=== PATIENT | female | born 2000 | race Caucasian/White ===

== ENCOUNTER 2019-01-27 23:04 | Emergency (ER) | payer SELFPAY ==
[~2019-01-27] VITALS: Ht 172.7 cm; Wt 56.4 kg
[2019-01-27 23:21] VITALS: Ht 172.7 cm; Wt 56.4 kg
[2019-01-28] MEDS ORDERED: ZPAK PO (00:42)
[2019-01-28] MEDS ORDERED: ALBUTEROL SULF8.5 GM INH (00:42)
[2019-01-28] MEDS ORDERED: MEDROL DOSE PACK4 MG PO (00:42)
[2019-01-28 00:53] VITALS: BP 121/82
--- NOTE | 2019-01-28 02:57 | NUR ---
DR WATT NOTIFIED AND REVIEWED PT's BEHAVIOR AND ASSESSMENT RESULTS, PT IS A LOW RISK PER DR WATT. DR WATT STATED TO GIVE RESOURCES TO PT AT TIME OF DISCHARGE. NO FURTHER ORDERS AT THIS TIME. RESOURCES REVIEWED WITH PT AND SHE VERBALIZED UNDERSTANDING.
== END 2019-01-28 00:53 | disposition home or self-care (01) ==
LOC: D.ER 23:04
DX: J40 Bronchitis, not specified as acute or chronic (principal)

== ENCOUNTER 2020-03-14 08:41 | Inpatient (IN) | payer MEDICAID ==
[~2020-03-14] VITALS: Ht 172.7 cm; Wt 73.9 kg
--- NOTE | 2020-03-14 03:30 | NUR ---
PT SITTING UP IN BED WITH S/O AT SIDE. DENIES ANY NEEDS OR COMPLAINTS
--- NOTE | 2020-03-14 06:00 | NUR ---
PT RESTING QUIETLY WITH EYES CLOSED, NO DISTRESS NOTED. S/O AT BEDSIDE.
[~2020-03-14 08:41] MED LIST: ALBUTEROL SULF8.5 GM INH; MEDROL DOSE PACK4 MG PO; ZPAK PO
[2020-03-14 09:29] LABS: BILIRUBIN NEGATIVE (NEGATIVE); KETONE NEGATIVE (NEGATIVE); NITRITE NEGATIVE (NEGATIVE); UROBILINOGEN NORMAL mg/dL (< 2)
[2020-03-14 09:31] LABS: BACTERIA FEW /HPF (NONE SEEN); EPITHELIAL CELLS OCC /hpf (0-5); WHITE CELLS - URINE 0-5 HPF (0-4)
[2020-03-14 09:45] LABS: UDS - AMPHET NEGATIVE QUAL (NEGATIVE); UDS - BARB NEGATIVE QUAL (NEGATIVE); UDS - BENZO NEGATIVE QUAL (NEGATIVE); UDS - COCAINE NEGATIVE QUAL (NEGATIVE); UDS - OPIATE NEGATIVE QUAL (NEGATIVE); UDS - PCP NEGATIVE QUAL (NEGATIVE); UDS - THC NEGATIVE QUAL (NEGATIVE)
[2020-03-14] MEDS ORDERED: PRENAVITE1 TAB PO (10:03)
[2020-03-14] MEDS ORDERED: ACETAMINOPHEN500 M1 PO (10:04)
[2020-03-14 10:05] VITALS: BP 127/83; Ht 172.7 cm; Wt 73.9 kg
[2020-03-14 10:08] LABS: HEMATOCRIT 39.3 % (36.0-48.0); HEMOGLOBIN 13.1 g/dL (12-16); MCH 31.9 pg (26.0-34.0); MCHC 33.3 g/dL (31.0-37.0); MCV 95.6 fL (80.0-100.0); MEAN PLATELET VOLUME 9.9 fL (7.4-10.4); RBC 4.11 10x6/uL (4.00-5.40); RDW 13.5 % (11.5-14.5); WBC 18.7 10x3/uL (4.8-10.8)
[2020-03-14 10:55] LABS: ALBUMIN 2.8 g/dL (3.4-5.0); ALKALINE PHOSPHATASE 176 U/L (30-120); ALT (SGPT) 21 U/L (10-68); BILIRUBIN - TOTAL 0.19 mg/dL (0.2-1.3); CALC OSMOLALITY 270 mosm/kg (275-300); CALCIUM 8.8 mg/dL (8.5-10.1); CARBON DIOXIDE 24.9 mmol/L (21.0-32.0); CHLORIDE - SERUM 106 mmol/L (98-107); CREATININE - SERUM 0.6 mg/dL (0.6-1.3); GLUCOSE 89 mg/dL (74-106); POTASSIUM - SERUM 4.1 mmol/L (3.5-5.1); PROTEIN - SERUM 6.4 g/dL (6.4-8.2); SODIUM 137 mmol/L (136-145); UREA NITROGEN 8 mg/dL (7-18); eGFR NON AFRICAN AMERICAN > 90 mL/min (90-120)
--- NOTE | 2020-03-14 19:35 | NUR ---
PT RESTING IN BED, DENIES C/O PAIN, DISCOMFORT OR ANY FURTHER NUMBNESS.EPIDURAL REMOVED WITH TIP INTACT. PT UP TO BR WITH ASSIST X2. SHE VOIDED GROSS LARGE UNMEASURED AMOUNT. ZAYNAB CARE DONE AND TAUGHT AND PT VOICED UNDERSTANDING. PT TO AND TRANSFERRED TO WOMEN'S SERVICES AND ROOM ORIENTATION DONE. SR UP X2, CALL LIGHT IN REACH
[2020-03-14 19:45] VITALS: BP 107/66
--- NOTE | 2020-03-14 20:05 | NUR ---
ASSESSMENT COMPLETE.LUNG SOUNDS CLEAR BILATERALLY, ABD SOFT FUNDUS FIRM MIDLINE AT UMBILICUS WITH SMALL AMT OF RUBRA LOCHIA RETURNED WITH MASSAGE. PERINEUM INTACT NO SWELLING NOTED. NO PEDAL EDEMA NOTED. NSL FLUSHED WITH 3 CC NS. CALL LIGHT IN REACH, SR UP X2, PHONE IN REACH.
--- NOTE | 2020-03-15 00:22 | NUR ---
PT RESTING QUIETLY WITH EYES CLOSED, NO DISTRESS NOTED.
[2020-03-15 04:51] LABS: HEMATOCRIT 37.8 % (36.0-48.0); HEMOGLOBIN 12.3 g/dL (12-16); MCH 31.3 pg (26.0-34.0); MCHC 32.5 g/dL (31.0-37.0); MCV 96.2 fL (80.0-100.0); MEAN PLATELET VOLUME 10.7 fL (7.4-10.4); RBC 3.93 10x6/uL (4.00-5.40); RDW 13.5 % (11.5-14.5); WBC 17.6 10x3/uL (4.8-10.8)
--- NOTE | 2020-03-15 06:45 | NUR ---
REPORT RECEIVED FROM Lenora CALVO RN.
[2020-03-15 07:16] LABS: RAPID PLASMA REAGIN Non Reactive (Non Reactive)
--- NOTE | 2020-03-15 08:30 | NUR ---
TO ROOM FOR ASSESSMENT. PT RESTING WITH EYES CLOSED; AWAKENS EASILY TO VOICE/NAME. SEE FLOWSHEET. PT STATES TYLENOL HAS WORKED WELL FOR PAIN. NO NEEDS OR CONCERNS VOICED AT THIS TIME. LINENS AND TOILETRIES GIVEN FOR SHOWER. MALE VISITOR AT BEDSIDE.
[2020-03-15 08:45] VITALS: BP 99/52
--- NOTE | 2020-03-15 11:35 | NUR ---
ROUNDS MADE. PT RESTING WITH EYES CLOSED IN BED. IN OPEN CRIB AT BEDSIDE. NO NEEDS OR QUESTIONS AT THIS TIME.
--- NOTE | 2020-03-15 13:30 | NUR ---
ROUNDS MADE. PT SITTING UP IN BED FEEDING BABY. REQUESTS PAIN MED. MED GIVEN. SNACKS,WATER AND JUICE ALSO GIVEN. NO OTHER NEEDS OR CONCERNS AT THIS TIME.
--- NOTE | 2020-03-15 15:02 | NUR ---
ROUNDS MADE. PT RESTING IN BED WITH EYES CLOSED.
--- NOTE | 2020-03-15 16:28 | NUR ---
ROUNDS MADE. PT SITTING UP IN BED TALKING ON PHONE. AT BEDSIDE IN OPEN CRIB. NO NEEDS VOICED AT THIS TIME.
--- NOTE | 2020-03-15 17:11 | MORECARE ---
CASE MANAGEMENT DISCHARGE SUMMARY PATIENT: CORA CAMACHO UNIT: [id number] ADM DATE: 03/14/20 AGE: 19 : 98 SEX: F ROOM/BED: D.1219 AUTHOR: SNEHA SOFIA PHYSICIAN: REFERRING PHYSICIAN: CAESAR VENTURA MD DATE OF SERVICE: 03/15/20 Discharge Plan Patient Name: CORA CAMACHO Facility: [facility]:[place] : 2000 Planned Disposition: Home Anticipated Discharge Date: 03/15/20 Discharge Date: Expected LOS: 1 Initial Reviewer: [email or web address] Initial Review Date: 03/14/2020 Generated: 03/15/20 6:10 pm Patient Name: CORA CAMACHO Page [id number] at 1711 All edits/amendments must be made on the electronic document DICTATION DATE: 03/15/201710 PRODUCTION HARDENER: JESSICA 03/15/201710 RPT#: [id number] DC DATE: STATUS: ADM IN [facility] [address] [place] [address] END OF REPORT
--- NOTE | 2020-03-15 17:20 | MORECARE ---
CASE MANAGEMENT DISCHARGE SUMMARY PATIENT: CORA CAMACHO UNIT: [id number] ADM DATE: 03/14/20 AGE: 19 : 98 SEX: F ROOM/BED: D.1219 AUTHOR: SNEHA SOFIA PHYSICIAN: REFERRING PHYSICIAN: CAESAR VENTURA MD DATE OF SERVICE: 03/15/20 Discharge Plan Patient Name: CORA CAMACHO [facility] [facility] 2000 Planned Disposition: Home Anticipated Discharge Date: 03/15/20 Discharge Date: Expected LOS: 1 Initial Reviewer: [email or web address] Initial Review Date: 03/14/2020 Generated: 03/15/20 6:20 pm Last DP export: 03/15/20 4:11 p Patient Name: CORA CAMACHO Page [id number] at 1720 All edits/amendments must be made on the electronic document DICTATION DATE: 03/15/201719 TRAVEL ATTENDANTS: JESSICA 03/15/201719 RPT#: [id number] DC DATE: STATUS: ADM IN [facility] [address] [place] [address] END OF REPORT
--- NOTE | 2020-03-15 19:00 | NUR ---
RECEIVED SHIFT REPORT FROM JOSEFINA DAVENPORT RN
--- NOTE | 2020-03-15 19:25 | NUR ---
PT GETTING READY TO SHOWER, INFORMED PT THAT I WILL BE BACK SHORTLY THEN TO DO ASSESSMENT, PT VERBALIZES UNDERSTANDING, DENIES NEEDS OR PAIN AT THIS TIME
--- NOTE | 2020-03-15 20:10 | NUR ---
DR VENTURA IN ROOM TALKING TO PT
--- NOTE | 2020-03-15 20:15 | NUR ---
DR VENTURA AT AERONAUTICAL ENGINEERING TEACHER, REPORTS THAT HE ORDERED LOVENOX FOR PT AND THAT HE WANTED HER TO START THE LOVENOX TONIGHT, ALSO, TALKED TO HIM ABOUT PT REPORTING THAT SHE HAD RHOGAM 2 DAYS BEFORE DELIVERY, AND THAT IT WAS VERIFIED PER JOSEFINA DAVENPORT, [facility] AND PHARMACY THAT IT WAS FINE TO ADM ANOTHER DOSE, DR VENTURA CONFERS AND REPORTS TO ADM IT BEFORE DISCHARGE TOMORROW, ALSO, HE REPORTS THAT HE IS GOING TO PUT IN FOR A CASE MANAGEMENT CONS TO MAKE SURE PT IS ABLE TO GET THE LOVENOX AT HOME WHEN DISCHARGED
[2020-03-15 20:30] VITALS: BP 118/80
--- NOTE | 2020-03-15 20:30 | NUR ---
ASSESSMENT PER FLOW SHEET, VS OBTAINED, PT REPORTS SALINE LOCK IS HURTING, SLIGHTLY RED, SALINE LOCK REMOVED, TIP INTACT, PRESSURE HELD, BANDAID APPLIED, FF, ML, U/2, LITE BLEEDING NOTED WITH NO CLOTS, PT REPORTS FLATUS, NO BM, AND VOIDING WITH NO DIFFICULTY, PT USING ZAYNAB CARE INST, POC DISCUSSED WITH PT REGARDING LOVENOX, CASE MANAGEMENT CONS DUE TO THE LOVENOX, AND DISCHARGE TOMORROW, PT VERBALIZES UNDERSTANDING, DENIES NEEDS OR PAIN AT THIS TIME, IN OPEN CRIB CART AND FOB AT BEDSIDE, TRASH REMOVED
--- NOTE | 2020-03-15 21:10 | NUR ---
PT INST ON AND VERBALIZES UNDERSTANDING OF ADM OF LOVENOX, ADM LOVENOX SUBQ IN RIGHT ABD, PT ODILON WELL, PT REQUESTED AND SERVED FRESH H20 AND BAG OF CHIPS, DENIES FURTHER NEEDS, INFANT IN OPEN CRIB CART AT BEDSIDE
--- NOTE | 2020-03-15 22:00 | NUR ---
PT AMB IN PHAN WITH IN OPEN CRIB CART, GAIT STEADY, FOB AT SIDE
--- NOTE | 2020-03-15 22:07 | NUR ---
PT BACK TO ROOM, DENIES NEEDS OR PAIN AT THIS TIME
--- NOTE | 2020-03-16 00:24 | NUR ---
PT AMB TO ASSESSMENT SERVICES MANAGER, REQUESTED AND PROVIDED BLANKETS AND INFANT SHIRT, PT GETTING READY TO CHANGE DIRTY DIAPER, PT INST TO USE CALL LIGHT FOR ANY ASSISTANCE, FOB AT BEDSIDE
--- NOTE | 2020-03-16 02:07 | NUR ---
PT RESTING WITH EYES CLOSED, RESP QUIET, NO DISTRESS NOTED, LEFT UNDISTURBED AT THIS TIME, IN OPEN CART CRIB AND FOB AT BEDSIDE
--- NOTE | 2020-03-16 04:00 | NUR ---
PT RESTING WITH EYES CLOSED, RESP QUIET, NO DISTRESS NOTED, LEFT UNDISTURBED AT THIS TIME, IN OPEN CRIB CART SLEEPING, AND FOB AT BEDSIDE
[2020-03-16 06:45] VITALS: BP 122/63
--- NOTE | 2020-03-16 06:45 | NUR ---
PT RESTING WITH EYES CLOSED, AROUSES TO SOFT VERBAL STIMULATION, VS OBTAINED, FF, ML, U/2, LITE BLEEDING NOTED WITH NO CLOTS, PT DENIES NEEDS OR PAIN AT THIS TIME, FOB BOTTLE FEEDING
--- NOTE | 2020-03-16 08:47 | NUR ---
RN TO PT BS. CARLOS GIVEN AND DOSE EXPLAINED. PT TEACHING PROVIDED ON LOVENOOX. INSTRUCTIONS GIVEN ON SELF ADMINISTRATION. PT GAVE DOSE TO LLQ OF ABDOMEN WITHOUT DIFFICULTY. QUESTIONS ANSWERED. PT VERBALIZED UNDERSTANDING.
--- NOTE | 2020-03-16 10:49 | NUR ---
RN TO PT BS FOR ROUNDS. PT RESTING IN BED IN RIGHT LATERAL POSITION. PT DENIES ANY NEEDS AT THIS TIME. BED IN LOW POSITION, SIDE RAILS UP TIMES 2, CALL LIGHT AND PHONE IN REACH. REMAINS AT PT BS FOR COUPLET CARE. WILL CONT TO MONITOR PT STATUS.
[2020-03-16] MEDS ORDERED: LOVENOX40 MG/0.4 SC (13:57)
[2020-03-16] MEDS ORDERED: FLAGYL500 MG PO (13:59)
--- NOTE | 2020-03-16 14:15 | NUR ---
DISCHARGE INSTRUCTIONS REVIEWED WITH PT, HANDOUTS PROVIDED FOR REVIEW ONCE AT HOME, PRESCRIPTION FOR LOVENOX GIVEN TO PT, PT INFORMED THAT FLAGYL MEDICATION TO TREAT +TRICHOMONAS IN URINE WAS SENT TO PHARMACY OF CHOICE IN CHART PER ROUNDING MD TODAY, PT VOICES UNDERSTANDING OF ALL INFORMATION PROVIDED AND ABLE TO VOICE CARE INSTRUCTIONS USING TEACH BACK METHOD. NAD NOTED. PT ROOMING IN FORM COMPLETED PT WILL ROOM-IN UNTIL INFANT DISCHARGED.
--- NOTE | 2020-03-16 15:38 | MORECARE ---
CASE MANAGEMENT DISCHARGE SUMMARY PATIENT: CORA CAMACHO UNIT: [id number] ADM DATE: 03/14/20 AGE: 19 : 98 SEX: F ROOM/BED: D.1219 AUTHOR: SNEHA SOFIA PHYSICIAN: REFERRING PHYSICIAN: CAESAR VENTURA MD DATE OF SERVICE: 03/16/20 Discharge Plan Patient Name: CORA CAMACHO [facility] [facility] 2000 Planned Disposition: Home Anticipated Discharge Date: 03/15/20 Discharge Date: 03/16/2020 Expected LOS: 1 Initial Reviewer: [email or web address] Initial Review Date: 03/14/2020 Generated: 03/16/20 4:38 pm Last DP export: 03/15/20 4:21 p Patient Name: CORA CAMACHO Page 11201 at 1538 All edits/amendments must be made on the electronic document DICTATION DATE: 03/16/20 153 RE ETCHER: JESSICA 03/16/20 1538 RPT#: [id number] DC DATE:03/16/20 STATUS: DIS IN [facility] [address] [place] [address] END OF REPORT
--- NOTE | 2020-03-18 09:08 | MORECARE ---
CASE MANAGEMENT DISCHARGE SUMMARY PATIENT: CORA CAMACHO UNIT: [id number] ADM DATE: 03/14/20 AGE: 19 : [birth year] SEX: F ROOM/BED: D.1219 AUTHOR: SNEHA SOFIA PHYSICIAN: REFERRING PHYSICIAN: CAESAR VENTURA MD DATE OF SERVICE: 03/18/20 Discharge Plan Patient Name: CORA CAMACHO [facility] [facility] 2000 Planned Disposition: Home Anticipated Discharge Date: 03/15/20 Discharge Date: 03/16/2020 Expected LOS: 1 Initial Reviewer: [email or web address] Initial Review Date: 03/14/2020 Generated: 03/18/20 10:07 am Last DP export: 03/16/20 2:38 p Patient Name: CORA CAMACHO Page [id number] at 0908 All edits/amendments must be made on the electronic document DICTATION DATE: 03/18/20906 MUSEUM OR ZOO DIRECTOR: DM 03/18/20906 RPT#: [id number] DC DATE:03/16/20 STATUS: DIS IN [facility] [address] [place] [address] END OF REPORT
== END 2020-03-16 14:15 | disposition home or self-care (01) | DRG 807 ==
LOC: D.LDO 08:41 → D.WS 09:33 → D.LD 09:33 → D.WS 20:36
PROVIDERS: ADMIT Obstetrics & Gynecology; ATTEND Obstetrics & Gynecology
PROC: 10E0XZZ Delivery of Products of Conception, External Approach (ICD-10-PCS; principal; 2020-03-14)
DX: O60.14X0 Preterm labor third trimester with preterm delivery third trimester, not applicable or unspecified (principal); Z37.0 Single live birth; Z3A.35 35 weeks gestation of pregnancy

== ENCOUNTER → 2020-11-26 | Emergency (ER) | payer MEDICAID ==
[~2020-11-26] VITALS: Ht 172.7 cm; Wt 52.3 kg
[~2020-11-26] MED LIST changes: +ACETAMINOPHEN500 M1 PO; +FLAGYL500 MG PO; +LOVENOX40 MG/0.4 SC; +PRENAVITE1 TAB PO
[2020-11-26 17:28] VITALS: BP 116/67
[2020-11-26 18:22] LABS: BASOPHILS 0.2 % (0-2); HEMOGLOBIN 12.7 g/dL (12-16); LYMPHOCYTES 11.2 % (15-50); MCH 29.6 pg (26.0-34.0); MCHC 33.5 g/dL (31.0-37.0); MCV 88.3 fL (80.0-100.0); MEAN PLATELET VOLUME 7.9 fL (7.4-10.4); MONOCYTES 3.8 % (2-11); NEUTROPHILS 83.8 % (40-80); PLATELET COUNT 233 10x3/uL (130-400); RBC 4.31 10x6/uL (4.00-5.40); RDW 14.5 % (11.5-14.5); WBC 11.3 10x3/uL (4.8-10.8)
[2020-11-26 18:28] LABS: APTT 28.4 SECONDS (22.8-39.4); INR 1.12 (0.85-1.17); PROTIME 13.4 SECONDS (11.6-15.0)
[2020-11-26 18:32] LABS: CALC OSMOLALITY 270 mosm/kg (275-300); CALCIUM 8.6 mg/dL (8.5-10.1); CARBON DIOXIDE 26.7 mmol/L (21.0-32.0); CHLORIDE - SERUM 102 mmol/L (98-107); CREATININE - SERUM 0.7 mg/dL (0.6-1.3); GLUCOSE 89 mg/dL (74-106); POTASSIUM - SERUM 3.4 mmol/L (3.5-5.1); SODIUM 137 mmol/L (136-145); UREA NITROGEN 8 mg/dL (7-18); eGFR NON AFRICAN AMERICAN > 90 mL/min (90-120)
[2020-11-26 19:00] LABS: ALBUMIN 2.7 g/dL (3.4-5.0); ALKALINE PHOSPHATASE 78 U/L (30-120); ALT (SGPT) 16 U/L (10-68); BILIRUBIN - TOTAL 0.24 mg/dL (0.2-1.3); HCG - QUANTITATIVE (MATERNAL) 10863 mIU/mL; PROTEIN - SERUM 6.8 g/dL (6.4-8.2)
[2020-11-26 20:12] VITALS: Ht 172.7 cm; Wt 52.3 kg
== END | disposition home or self-care (01) ==
LOC: D.ER 17:26
PROVIDERS: Student in an Organized Health Care Education/Training Program
DX: O03.9 Complete or unspecified spontaneous abortion without complication (principal); J44.9 Chronic obstructive pulmonary disease, unspecified